=== PATIENT | male | born 1955 ===

== ENCOUNTER 2019-07-14 03:35 | Outpatient (RCR) | payer MEDICARE, SELFPAY ==
[2019-07-14 09:11] VITALS: BP 120/75; PULSE 80; RESP 19; TEMP 36.5; O2SAT 99
[2019-07-14] MEDS: diphenhydrAMINE 25 MG CAP PO (09:21)
[2019-07-14] MEDS: methylPREDNISolone SUCC 125 MG VIAL 100 MG IV (09:21)
[2019-07-14] MEDS: Loratidine 10 MG TAB PO (09:22)
[2019-07-14] MEDS: Acetaminophen 325 MG TAB 650 MG PO (09:22)
[2019-07-14 09:26] VITALS: BP 125/80; PULSE 80; RESP 18; TEMP 36.5; O2SAT 98
[2019-07-14] MEDS: Normal Saline Flush 10 ML SYR IVP (09:33)
[2019-07-14 09:56] VITALS: BP 110/75; PULSE 68; RESP 19; TEMP 36.4; O2SAT 97
[2019-07-14 10:26] VITALS: BP 113/78; PULSE 80; RESP 18; TEMP 36.5; O2SAT 97
== END 2019-08-06 23:35 | disposition home or self-care (01) ==
LOC: INF 03:35
PROVIDERS: Visit Provider Internal Medicine
DX: M06.9 Rheumatoid arthritis, unspecified (principal)
CPT/HCPCS: 96365; 96366; J2930; J9312

== ENCOUNTER 2019-12-29 09:00 | Outpatient (RCR) | payer MEDICARE, MEDICAID, SELFPAY ==
[2019-12-29] VITALS (8 sets, daily range): BP systolic 101–133; BP diastolic 65–82; PULSE 60–78; RESP 18–19; TEMP 35.9–36.2; O2SAT 95–100
[2019-12-29] MEDS: diphenhydrAMINE 25 MG CAP PO (09:10)
[2019-12-29] MEDS: Acetaminophen 325 MG TAB 650 MG PO (09:10)
[2019-12-29] MEDS: Normal Saline Flush 10 ML SYR IVP (09:15)
[2019-12-29] MEDS: methylPREDNISolone SUCC 125 MG VIAL 100 MG IVP (09:15)
[2019-12-29] MEDS: riTUXimab-PVVR 1,000 MG in Normal Saline 150 ML 62.5 MG IVPB (09:17)
== END 2020-01-06 23:59 | disposition home or self-care (01) ==
LOC: INF 09:00
PROVIDERS: Visit Provider Internal Medicine
DX: M06.9 Rheumatoid arthritis, unspecified (principal)
CPT/HCPCS: 96365; 96366; 96374; 96375; J2930; Q5119

== ENCOUNTER 2020-01-13 01:04 | Outpatient (RCR) | payer MEDICARE, MEDICAID, SELFPAY ==
[2020-01-13 08:58] VITALS: BP 110/77; PULSE 81; RESP 18; TEMP 36.2; O2SAT 98
[2020-01-13] MEDS: diphenhydrAMINE 25 MG CAP PO (08:59)
[2020-01-13] MEDS: Acetaminophen 325 MG TAB 650 MG PO (08:59)
[2020-01-13] MEDS: Normal Saline Flush 10 ML SYR IVP (09:04)
[2020-01-13] MEDS: methylPREDNISolone SUCC 125 MG VIAL 100 MG IVP (09:15)
[2020-01-13] MEDS: riTUXimab-PVVR 1,000 MG in Normal Saline 150 ML 62.5 MG IVPB (09:32)
[2020-01-13 09:37] VITALS: BP 114/83; PULSE 81; RESP 19; TEMP 36.6; O2SAT 96
[2020-01-13 10:07] VITALS: BP 110/75; PULSE 67; RESP 18; TEMP 36.6; O2SAT 93
[2020-01-13 10:37] VITALS: BP 115/75; PULSE 73; RESP 18; TEMP 36.6; O2SAT 92
== END 2020-02-06 23:59 | disposition home or self-care (01) ==
LOC: INF 01:04
PROVIDERS: Visit Provider Internal Medicine
DX: M06.9 Rheumatoid arthritis, unspecified (principal)
CPT/HCPCS: 96365; 96366; J2930; Q5119